=== PATIENT | female | born 2000 | race Caucasian/White ===

== ENCOUNTER 2021-06-20 15:50 | Emergency (ER) | payer OTHER ==
[~2021-06-20] VITALS: Ht 167.6 cm; Wt 50.9 kg
[2021-06-20 17:10] LABS: BASOPHILS % (AUTO) 0.8 % (0.0-5.0); EOSINOPHILS % (AUTO) 3.3 % (0.0-8.0); HEMATOCRIT 41.1 % (36-48); LYMPHOCYTES % (AUTO) 45.6 % (21.0-51.0); MEAN CORPUSCULAR HEMOGLOBIN 28.8 pg (27.0-33.0); MEAN CORPUSCULAR HGB CONC 33.6 g/dL (32.0-36.0); MEAN CORPUSCULAR VOLUME 85.8 fL (79-99); MONOCYTES % (AUTO) 8.6 % (3.0-13.0); NEUTROPHILS % (AUTO) 41.5 % (40.0-77.0); PLATELET COUNT (AUTO) 233 K/uL (130-400); RED BLOOD CELL COUNT(AUTO) 4.79 MIL/uL (4.00-5.50); RED CELL DISTRIBUTION WIDTH 12.6 % (11.0-15.5); WHITE BLOOD COUNT (AUTO) 4.9 K/uL (4.8-10.8)
[2021-06-20 17:18] LABS: CREATININE 0.7 mg/dL (0.5-1.5); POTASSIUM 3.7 mmol/L (3.5-5.1)
[2021-06-20 17:26] VITALS: BP 132/97
[2021-06-20] MEDS ORDERED: LACTATED RINGERS 1000ML 1,000 ML IV ONE ×3 (17:30→20:30)
[2021-06-20 17:32] LABS: ALBUMIN 4.4 g/dL (3.5-5.0); BILIRUBIN,TOTAL 0.4 mg/dL (0.2-1.0); TOTAL PROTEIN, SERUM 7.7 g/dL (6.0-8.3)
[2021-06-20] MEDS ORDERED: FUROSEMIDE 20MG VIAL IV ONE (18:00)
[2021-06-20] MEDS ORDERED: FUROSEMIDE 20MG VIAL ONE (19:29)
== END 2021-06-20 21:22 ==
LOC: EDH 15:50
DX: R74.8 Abnormal levels of other serum enzymes (principal); F41.9 Anxiety disorder, unspecified; F32.9 Major depressive disorder, single episode, unspecified
CPT/HCPCS: 36415; 80053; 82550 ×2; 85025; 96361; 96374; 99283; J1940